=== PATIENT | female | born 1945 | race Two or more races ===

== ENCOUNTER 2022-01-06 11:45 | Inpatient (IN) | payer OTHER ==
[~2022-01-06] VITALS: Ht 154.9 cm; Wt 66.7 kg
[2022-01-06] MEDS ORDERED: HYDROCHLOROTHIA25 MG PO (13:57)
[2022-01-06] MEDS ORDERED: METFORMIN HCL500 M3 PO (13:57)
[2022-01-06] MEDS ORDERED: ZOCOR20 MG PO (13:57)
[2022-01-06] MEDS ORDERED: COZAAR100 MG PO (13:58)
== END 2022-01-20 14:21 | disposition home or self-care (01) | DRG 331 ==
LOC: SURH 01-16 07:00 → O/R 01-16 08:06 → SURH 01-16 08:06
PROVIDERS: ADMIT Colon & Rectal Surgery; ATTEND Colon & Rectal Surgery
PROC: 0DTP4ZZ Resection of Rectum, Percutaneous Endoscopic Approach (ICD-10-PCS; 2022-01-16)
PROC: 0DTN4ZZ Resection of Sigmoid Colon, Percutaneous Endoscopic Approach (ICD-10-PCS; 2022-01-16)
PROC: 07BC4ZZ Excision of Pelvis Lymphatic, Percutaneous Endoscopic Approach (ICD-10-PCS; 2022-01-16)
PROC: 4A1BXSH Monitoring of Gastrointestinal Vascular Perfusion using Indocyanine Green Dye, External Approach (ICD-10-PCS; 2022-01-16)
PROC: 0D1B4Z4 Bypass Ileum to Cutaneous, Percutaneous Endoscopic Approach (ICD-10-PCS; principal; 2022-01-16 07:00)
DX: C20 Malignant neoplasm of rectum (principal); R59.0 Localized enlarged lymph nodes; Z93.2 Ileostomy status; I10 Essential (primary) hypertension

== ENCOUNTER 2022-01-11 06:09 | Day surgery (SDC) | payer OTHER ==
[~2022-01-11 06:09] MED LIST: COZAAR100 MG PO; HYDROCHLOROTHIA25 MG PO; METFORMIN HCL500 M3 PO; ZOCOR20 MG PO
== END 2022-01-11 13:10 | disposition home or self-care (01) ==
LOC: AMB-ENDOS 06:09
PROVIDERS: ATTEND Colon & Rectal Surgery
DX: C20 Malignant neoplasm of rectum (principal); I10 Essential (primary) hypertension; Z92.21 Personal history of antineoplastic chemotherapy

== ENCOUNTER 2022-02-01 17:22 | Inpatient (IN) | payer OTHER ==
[~2022-02-01] VITALS: Ht 147.3 cm; Wt 66.7 kg
--- NOTE | 2022-02-01 17:39 | NUR ---
SE RECIBE PTE ALERTA Y ORIENTADA Y ORIENTADA X3,REFIERE NO ESTAR ORINANDO ,REFIERE TENR CHI COLOSTOMIA ES PTE DE LA DRA.NICOLE NATHAN,LA PTE SE COMUNICO CON CAMILO ,LA REFIERE A LA LILO DE ER.
--- NOTE | 2022-02-01 18:00 | NUR ---
SE ORIENTA PTE SOBRE TX MEDICO POR MS HALL.SE LE EXTRAEN MUESTRAS BAJO MEDIDAS ASEPTICAS,SE INSERTA RUBIO JOSHUA ORDEN MEDICA.
== END 2022-02-05 12:38 | disposition home or self-care (01) | DRG 641 ==
LOC: ER 17:22 → SEC-K 20:57 → SURH 20:57
PROVIDERS: ADMIT Colon & Rectal Surgery; ATTEND Colon & Rectal Surgery
PROC: BW21ZZZ Computerized Tomography (CT Scan) of Abdomen and Pelvis (ICD-10-PCS; principal; 2022-02-01)
DX: E86.0 Dehydration (principal); N17.8 Other acute kidney failure; I10 Essential (primary) hypertension; E11.9 Type 2 diabetes mellitus without complications; Z79.4 Long term (current) use of insulin; Z20.822 Contact with and (suspected) exposure to COVID-19

== ENCOUNTER 2022-02-17 13:54 | Inpatient (IN) | payer OTHER ==
[~2022-02-17] VITALS: Ht 165.1 cm; Wt 61.2 kg
== END 2022-02-24 11:25 | disposition home or self-care (01) | DRG 683 ==
LOC: ER 13:54 → EDBD 17:27 → SURG 17:43
PROVIDERS: ADMIT Colon & Rectal Surgery; ATTEND Colon & Rectal Surgery
PROC: BT43ZZZ Ultrasonography of Bilateral Kidneys (ICD-10-PCS; principal; 2022-02-17)
DX: N17.8 Other acute kidney failure (principal); N39.0 Urinary tract infection, site not specified; C20 Malignant neoplasm of rectum; E86.0 Dehydration; B95.2 Enterococcus as the cause of diseases classified elsewhere; I10 Essential (primary) hypertension; Z93.2 Ileostomy status; Z90.49 Acquired absence of other specified parts of digestive tract; Z20.822 Contact with and (suspected) exposure to COVID-19

== ENCOUNTER 2022-03-09 19:34 | Inpatient (IN) | payer OTHER | END 2022-04-12 13:21 | disposition home or self-care (01) | DRG 981 | LOC: ER 19:34 → SURH 03-10 12:17 → SURG 03-10 12:17 → MEDJ 03-27 11:40 → SURG 03-27 13:27 → MEDJ 03-27 16:51 → SURH 04-03 20:48 | PROVIDERS: ADMIT Colon & Rectal Surgery; ATTEND Colon & Rectal Surgery | PROC: 0DT84ZZ Resection of Small Intestine, Percutaneous Endoscopic Approach (ICD-10-PCS; principal; 2022-03-10) | PROC: 0DBB4ZZ Excision of Ileum, Percutaneous Endoscopic Approach (ICD-10-PCS; 2022-03-10) | PROC: 02HV33Z Insertion of Infusion Device into Superior Vena Cava, Percutaneous Approach (ICD-10-PCS; 2022-03-20) | PROC: 0DJD8ZZ Inspection of Lower Intestinal Tract, Via Natural or Artificial Opening Endoscopic (ICD-10-PCS; 2022-03-22) | PROC: 30233N1 Transfusion of Nonautologous Red Blood Cells into Peripheral Vein, Percutaneous Approach (ICD-10-PCS; 2022-03-23) | PROC: 8E0ZXY6 Isolation (ICD-10-PCS; 2022-03-27) | PROC: 4A12X4Z Monitoring of Cardiac Electrical Activity, External Approach (ICD-10-PCS; 2022-03-28) | DX: N17.9 Acute kidney failure, unspecified (principal); U07.1 COVID-19; E87.1 Hypo-osmolality and hyponatremia; C20 Malignant neoplasm of rectum; N39.0 Urinary tract infection, site not specified; E86.0 Dehydration; D53.0 Protein deficiency anemia; D69.6 Thrombocytopenia, unspecified; Z79.4 Long term (current) use of insulin; E78.49 Other hyperlipidemia; I12.9 Hypertensive chronic kidney disease with stage 1 through stage 4 chronic kidney disease, or unspecified chronic kidney disease; E11.22 Type 2 diabetes mellitus with diabetic chronic kidney disease; N18.9 Chronic kidney disease, unspecified; Z43.2 Encounter for attention to ileostomy ==

== ENCOUNTER 2023-06-06 06:18 | Day surgery (SDC) | payer OTHER | END 2023-06-06 12:15 | disposition home or self-care (01) | LOC: AMB-ENDOS 06:18 | PROVIDERS: ATTEND Colon & Rectal Surgery | DX: Z85.048 Personal history of other malignant neoplasm of rectum, rectosigmoid junction, and anus (principal); K64.8 Other hemorrhoids; Z20.822 Contact with and (suspected) exposure to COVID-19; Z88.6 Allergy status to analgesic agent ==

== ENCOUNTER 2025-07-08 08:30 | Day surgery (SDC) | payer OTHER ==
[2025-07-08] MEDS ORDERED: DIPHENHYDRAMINE HCL 50 MG/ML VIAL 1ML IV ONE (09:45)
[2025-07-08] MEDS ORDERED: ONDANSETRON HCL 2 MG/ML VIAL IV ONE (09:45)
[2025-07-08] MEDS ORDERED: MIDAZOLAM HCL 2 MG/2 ML VIAL IV ONE (09:45)
[2025-07-08] MEDS ORDERED: fentaNYL CITRATE 50 MCG/ML AMPUL IV PUSH ONE (09:45)
== END 2025-07-08 10:25 | disposition home or self-care (01) ==
LOC: AMB-ENDOS 08:30
PROVIDERS: ATTEND Colon & Rectal Surgery
DX: C20 Malignant neoplasm of rectum (principal); K63.5 Polyp of colon; K57.30 Diverticulosis of large intestine without perforation or abscess without bleeding